=== PATIENT | male | born 1935 | race Two or more races ===

== ENCOUNTER 2017-05-02 10:30 | Emergency (ER) | payer MEDICARE ==
[~2017-05-02] VITALS: Ht 167.6 cm; Wt 77.1 kg
[2017-05-02 10:34] VITALS: BP 147/94
--- NOTE | 2017-05-02 11:29 | NUR ---
PATIENT LEFT WITHOUT BEING SEEN BY MD. PATIENT COULD NOT WAIT AND HAD TO GO TO WORK.
== END 2017-05-02 11:27 | disposition left against medical advice (07) ==
LOC: ER 10:31
DX: Z53.21 Procedure and treatment not carried out due to patient leaving prior to being seen by health care provider (principal)
CPT/HCPCS: A4606; Z7610